=== PATIENT | male | born 1960 | race Caucasian/White ===

== ENCOUNTER 2021-08-02 11:37 | Inpatient (IN) ==
[2021-08-02] MEDS ORDERED: Ringers Solution, Lactated 1,000 ML IVC SCH (12:30)
[2021-08-02] MEDS ORDERED: Lidocaine -MPF 2% 5 ML VIAL ONE (12:55)
[2021-08-02] MEDS ORDERED: Ondansetron 4 MG/2 ML VIAL IVP PRN (15:59)
[2021-08-02] MEDS ORDERED: Naloxone 0.4 MG/ML INJ IVP PRN (15:59)
[2021-08-02 16:27] LABS: Basophils % 0.3 %; Eosinophils % 0.2 %; Hematocrit 22.8 % (37.5-50.1); Hemoglobin 7.5 g/dL (12.9-16.9); Immature Granulocytes % 0.7 % (0-4); Lymphocytes # 1.6 K/mcL (0.6-4.6); Lymphocytes % 14.4 %; Mean Corpuscular HGB Conc 32.9 g/dL (31.6-35.5); Mean Corpuscular Volume 100.4 fL (83.0-100.0); Mean Platelet Volume 10.9 fL (9.4-12.4); Monocytes # 0.7 K/mcL (0.0-1.3); Monocytes % 6.3 %; Neutrophils # 8.5 K/mcL (1.6-8.9); Platelet Count 300 K/mcL (140-400); Red Blood Count 2.27 M/mcL (4.19-5.50); Red Cell Distribution Width 13.2 % (11.5-14.5); Segmented Neutrophils % 78.1 %; White Blood Count 10.9 K/mcL (4.3-11.1)
[2021-08-02 16:34] LABS: INR 1.1; Prothrombin Time 12.4 Seconds (9.4-12.1)
[2021-08-02 16:43] LABS: BUN/Creatinine Ratio 19 (6-26); Blood Urea Nitrogen 11 mg/dL (6-20); Carbon Dioxide 28 mEq/L (23-29); Chloride 90 mEq/L (98-107); Glucose 120 mg/dL (70-105); Osmolality,Calculated 265 (280-300); Potassium 3.4 mEq/L (3.5-5.1); Sodium 127 mEq/L (136-145); eGFR For African Americans > 60 (> 60); eGFR For Non-African Americans > 60 (> 60)
[2021-08-02] MEDS ORDERED: Isovue-370 500 ML BOTTLE IVP ONE (16:46)
[2021-08-02] MEDS ORDERED: Ipratropium/Albuterol Neb 3 ML IH PRN (16:51)
[2021-08-02] MEDS: Nicotine 21 MG PATCH.TD24 TD SCH (17:53)
[2021-08-02] MEDS: Pantoprazole 40 MG VIAL IVP SCH (19:42)
[2021-08-02 21:29] LABS: Hematocrit 20.4 % (37.5-50.1); Hemoglobin 6.8 g/dL (12.9-16.9)
[2021-08-02] MEDS: Budesonide/Formoterol 160/4.5 1 PUFF INH IH SCH (22:09)
[2021-08-03 04:43] LABS: Hematocrit 19.2 % (37.5-50.1); Hemoglobin 6.2 g/dL (12.9-16.9)
[2021-08-03 04:52] LABS: % Iron Saturation 17 % (20-55); BUN/Creatinine Ratio 18 (6-26); Blood Urea Nitrogen 9 mg/dL (6-20); Calcium 7.8 mg/dL (8.6-10.3); Carbon Dioxide 23 mEq/L (23-29); Chloride 93 mEq/L (98-107); Glucose 96 mg/dL (70-105); Iron 35 mcg/dL (65-175); Osmolality,Calculated 263 (280-300); Potassium 3.6 mEq/L (3.5-5.1); Sodium 127 mEq/L (136-145); Transferrin 149 mg/dL (203-362); eGFR For African Americans > 60 (> 60); eGFR For Non-African Americans > 60 (> 60)
[2021-08-03 05:03] LABS: Thyroid Stimulating Hormone 6.595 mcIU/mL (0.340-5.600)
[2021-08-03 05:09] LABS: Ferritin 111 ng/mL (20-250)
[2021-08-03 05:13] LABS: Folate 4.1 ng/mL (3.0-16.0)
[2021-08-03] MEDS: Budesonide/Formoterol 160/4.5 1 PUFF INH IH SCH ×2 (08:02→20:00)
[2021-08-03] MEDS ORDERED: 0.9 % Sodium Chloride 250 ML ONE (08:49)
[2021-08-03] MEDS: Pantoprazole 40 MG VIAL IVP SCH ×2 (09:23→21:33)
[2021-08-03] MEDS ORDERED: Lidocaine -MPF 2% 5 ML VIAL ONE ×2 (10:39→11:21)
[2021-08-03] MEDS ORDERED: *HR* Propofol 200 MG/20 ML VIAL IVP ONE ×2 (10:39→10:53)
[2021-08-03] MEDS: 0.9 % Sodium Chloride 1,000 ML IVC SCH (11:58)
[2021-08-03] MEDS ORDERED: Cyanocobalamin (B-12) 1,000 MCG/ML VIAL SQ ONE (14:30)
[2021-08-03 14:51] LABS: Hematocrit 25.6 % (37.5-50.1)
[2021-08-03 14:53] LABS: Hemoglobin 8.4 g/dL (12.9-16.9)
[2021-08-03 15:03] LABS: Carcinoembryonic Antigen 3.9 ng/mL (Less than 5.0)
[2021-08-03] MEDS: Nicotine 21 MG PATCH.TD24 TD SCH (16:36)
[2021-08-03] MEDS ORDERED: Budesonide/Formoterol 160/4.5 1 PUFF INH IH SCH (22:00)
[2021-08-04] MEDS: 0.9 % Sodium Chloride 1,000 ML IVC SCH ×2 (01:04→12:54)
[2021-08-04 05:41] LABS: Hematocrit 22.2 % (37.5-50.1); Hemoglobin 7.5 g/dL (12.9-16.9); Mean Corpuscular HGB Conc 33.8 g/dL (31.6-35.5); Mean Corpuscular Volume 97.8 fL (83.0-100.0); Platelet Count 229 K/mcL (140-400); Red Blood Count 2.27 M/mcL (4.19-5.50); Red Cell Distribution Width 14.1 % (11.5-14.5); White Blood Count 9.5 K/mcL (4.3-11.1)
[2021-08-04 05:58] LABS: Alanine Aminotransferase 7 Units/L (7-52); Albumin 2.4 g/dL (3.5-5.7); Albumin/Globulin Ratio 0.9 (1.1-2.2); Alkaline Phosphatase 55 Units/L (34-104); Aspartate Amino Transferase 17 Units/L (13-39); BUN/Creatinine Ratio 14 (6-26); Bilirubin,Total 0.4 mg/dL (0.3-1.0); Blood Urea Nitrogen 6 mg/dL (6-20); Calcium 7.3 mg/dL (8.6-10.3); Carbon Dioxide 24 mEq/L (23-29); Chloride 97 mEq/L (98-107); Globulin 2.6 g/dL (2.4-3.5); Glucose 97 mg/dL (70-105); Osmolality,Calculated 268 (280-300); Potassium 3.4 mEq/L (3.5-5.1); Sodium 130 mEq/L (136-145); eGFR For African Americans > 60 (> 60); eGFR For Non-African Americans > 60 (> 60)
[2021-08-04] MEDS: Pantoprazole 40 MG VIAL IVP SCH ×2 (09:38→19:34)
[2021-08-04] MEDS: Folic Acid 1 MG TABLET PO SCH (09:38)
[2021-08-04] MEDS: Budesonide/Formoterol 160/4.5 1 PUFF INH IH SCH ×2 (11:28→20:45)
[2021-08-04] MEDS: Nicotine 21 MG PATCH.TD24 TD SCH (17:46)
[2021-08-05 01:25] LABS: Mean Corpuscular HGB Conc 31.8 g/dL (31.6-35.5); Mean Corpuscular Volume 100.5 fL (83.0-100.0); Platelet Count 218 K/mcL (140-400); Red Blood Count 2.19 M/mcL (4.19-5.50); Red Cell Distribution Width 14.2 % (11.5-14.5); White Blood Count 9.1 K/mcL (4.3-11.1)
[2021-08-05] MEDS: 0.9 % Sodium Chloride 1,000 ML IVC SCH ×2 (01:35→14:22)
[2021-08-05 01:43] LABS: Alanine Aminotransferase 7 Units/L (7-52); Albumin 2.4 g/dL (3.5-5.7); Alkaline Phosphatase 54 Units/L (34-104); Aspartate Amino Transferase 17 Units/L (13-39); BUN/Creatinine Ratio 13 (6-26); Bilirubin,Total 0.3 mg/dL (0.3-1.0); Blood Urea Nitrogen 5 mg/dL (6-20); Calcium 7.3 mg/dL (8.6-10.3); Carbon Dioxide 22 mEq/L (23-29); Chloride 99 mEq/L (98-107); Globulin 2.5 g/dL (2.4-3.5); Glucose 95 mg/dL (70-105); Osmolality,Calculated 271 (280-300); Potassium 3.4 mEq/L (3.5-5.1); Sodium 132 mEq/L (136-145); Total Protein 4.9 g/dL (6.4-8.9); eGFR For African Americans > 60 (> 60); eGFR For Non-African Americans > 60 (> 60)
[2021-08-05] MEDS: Budesonide/Formoterol 160/4.5 1 PUFF INH IH SCH ×2 (07:59→20:24)
[2021-08-05] MEDS: Pantoprazole 40 MG VIAL IVP SCH ×2 (08:51→20:20)
[2021-08-05] MEDS: Folic Acid 1 MG TABLET PO SCH (08:51)
[2021-08-05 12:09] LABS: Hematocrit 26.6 % (37.5-50.1)
[2021-08-05 12:10] LABS: Hemoglobin 8.7 g/dL (12.9-16.9)
[2021-08-05] MEDS: Nicotine 21 MG PATCH.TD24 TD SCH (13:43)
[2021-08-06] MEDS: 0.9 % Sodium Chloride 1,000 ML IVC SCH (03:17)
[2021-08-06 05:48] LABS: Hematocrit 23.3 % (37.5-50.1); Hemoglobin 7.6 g/dL (12.9-16.9); Mean Corpuscular HGB Conc 32.6 g/dL (31.6-35.5); Mean Corpuscular Hemoglobin 32.6 pg (28.0-33.3); Mean Platelet Volume 11.1 fL (9.4-12.4); Platelet Count 256 K/mcL (140-400); Red Blood Count 2.33 M/mcL (4.19-5.50); Red Cell Distribution Width 14.1 % (11.5-14.5); White Blood Count 10.1 K/mcL (4.3-11.1)
[2021-08-06 06:01] LABS: Alanine Aminotransferase 9 Units/L (7-52); Albumin 2.6 g/dL (3.5-5.7); Alkaline Phosphatase 57 Units/L (34-104); Aspartate Amino Transferase 20 Units/L (13-39); BUN/Creatinine Ratio 13 (6-26); Bilirubin,Total 0.4 mg/dL (0.3-1.0); Blood Urea Nitrogen 5 mg/dL (6-20); Calcium 7.4 mg/dL (8.6-10.3); Carbon Dioxide 24 mEq/L (23-29); Chloride 96 mEq/L (98-107); Globulin 2.7 g/dL (2.4-3.5); Glucose 97 mg/dL (70-105); Osmolality,Calculated 267 (280-300); Potassium 3.4 mEq/L (3.5-5.1); Sodium 130 mEq/L (136-145); Total Protein 5.3 g/dL (6.4-8.9); eGFR For African Americans > 60 (> 60); eGFR For Non-African Americans > 60 (> 60)
[2021-08-06] MEDS: Pantoprazole 40 MG VIAL IVP SCH ×2 (08:49→20:13)
[2021-08-06] MEDS: Folic Acid 1 MG TABLET PO SCH (08:49)
[2021-08-06] MEDS: Budesonide/Formoterol 160/4.5 1 PUFF INH IH SCH ×2 (09:06→20:13)
[2021-08-06] MEDS: Nicotine 21 MG PATCH.TD24 TD SCH (18:22)
[2021-08-07 07:51] LABS: Hemoglobin 7.1 g/dL (12.9-16.9); Mean Corpuscular HGB Conc 32.3 g/dL (31.6-35.5); Mean Corpuscular Hemoglobin 32.4 pg (28.0-33.3); Mean Corpuscular Volume 100.5 fL (83.0-100.0); Mean Platelet Volume 11.2 fL (9.4-12.4); Platelet Count 252 K/mcL (140-400); Red Blood Count 2.19 M/mcL (4.19-5.50); Red Cell Distribution Width 14.1 % (11.5-14.5)
[2021-08-07] MEDS: Budesonide/Formoterol 160/4.5 1 PUFF INH IH SCH (07:57)
[2021-08-07 08:04] LABS: Alanine Aminotransferase 9 Units/L (7-52); Albumin 2.7 g/dL (3.5-5.7); Alkaline Phosphatase 56 Units/L (34-104); Aspartate Amino Transferase 19 Units/L (13-39); BUN/Creatinine Ratio 18 (6-26); Bilirubin,Total 0.3 mg/dL (0.3-1.0); Blood Urea Nitrogen 6 mg/dL (6-20); Calcium 7.5 mg/dL (8.6-10.3); Carbon Dioxide 22 mEq/L (23-29); Chloride 93 mEq/L (98-107); Globulin 2.8 g/dL (2.4-3.5); Glucose 96 mg/dL (70-105); Osmolality,Calculated 265 (280-300); Potassium 3.3 mEq/L (3.5-5.1); Sodium 129 mEq/L (136-145); Total Protein 5.5 g/dL (6.4-8.9); eGFR For African Americans > 60 (> 60); eGFR For Non-African Americans > 60 (> 60)
[2021-08-07 12:56] LABS: Adenovirus Not Detected (Not Detect); Bordetella Pertussis Not Detected (Not Detect); Chlamydophila pneumoniae Not Detected (Not Detect); Coronavirus 229E Not Detected (Not Detect); Coronavirus HKU1 Not Detected (Not Detect); Coronavirus NL63 Not Detected (Not Detect); Coronavirus OC43 Not Detected (Not Detect); Human Metapneumovirus Not Detected (Not Detect); Human Rhinovirus/Enterovirus Not Detected (Not Detect); Influenza A Subtype 2009 H1 Not Detected (Not Detect); Influenza B Not Detected (Not Detect); Mycoplasma pneumoniae Not Detected (Not Detect); Parainfluenza Virus 1 Not Detected (Not Detect); Parainfluenza Virus 2 Not Detected (Not Detect); Parainfluenza Virus 3 Not Detected (Not Detect); Parainfluenza Virus 4 Not Detected (Not Detect); Respiratory Syncytial Virus Not Detected (Not Detect); SARS-CoV-2 Not Detected (Not Detect)
[2021-08-07 13:10] LABS: Hematocrit 22.3 % (37.5-50.1); Hemoglobin 7.5 g/dL (12.9-16.9)
[2021-08-07] MEDS: Folic Acid 1 MG TABLET PO SCH (13:30)
[2021-08-07] MEDS: Pantoprazole 40 MG VIAL IVP SCH (13:31)
[2021-08-07 14:57] VITALS: BP 117/72; PULSE 128; TEMP 98.1; O2SAT 98
== END 2021-08-07 15:16 | DRG 240 ==
LOC: ENDPAV 11:37 → 3BNU 11:37 → SUATTDRO 15:52
PROVIDERS: ADMIT Family Medicine; ATTEND Registered Nurse
PROC: ENDOEBX (2021-08-02 12:40)

== ENCOUNTER 2021-08-10 11:26 | Inpatient (IN) ==
[2021-08-10] MEDS: Pantoprazole 40 MG in 0.9 % Sodium Chloride Mini Bag 100 ML IVC SCH ×3 (11:30→20:44)
[2021-08-10] MEDS ORDERED: Pantoprazole 80 MG in 0.9 % Sodium Chloride 50 ML IVPB ONE (11:37)
[2021-08-10] MEDS ORDERED: 0.9 % Sodium Chloride 1,000 ML IVC ONE (11:37)
[2021-08-10] MEDS ORDERED: Isovue-370 500 ML BOTTLE IVP ONE ×2 (11:41→14:37)
[2021-08-10 12:00] LABS: Basophils % 0.2 %; Eosinophils % 0.1 %; Hematocrit 21.2 % (37.5-50.1); Hemoglobin 6.6 g/dL (12.9-16.9); Immature Granulocytes % 0.5 % (0-4); Lymphocytes % 13.6 %; Mean Corpuscular HGB Conc 31.1 g/dL (31.6-35.5); Mean Corpuscular Volume 102.9 fL (83.0-100.0); Monocytes # 0.8 K/mcL (0.0-1.3); Monocytes % 5.6 %; Neutrophils # 11.9 K/mcL (1.6-8.9); Nucleated Red Blood Cells 0.1 /100 WBC (0); Platelet Count 345 K/mcL (140-400); Red Blood Count 2.06 M/mcL (4.19-5.50); Red Cell Distribution Width 14.9 % (11.5-14.5)
[2021-08-10 12:14] LABS: INR 1.1; Prothrombin Time 12.4 Seconds (9.4-12.1)
[2021-08-10 12:17] LABS: Activated Partial Thrombo Time 23.3 Seconds (26.0-36.0)
[2021-08-10 12:19] LABS: Alanine Aminotransferase 10 Units/L (7-52); Albumin 3.2 g/dL (3.5-5.7); Alkaline Phosphatase 56 Units/L (34-104); Aspartate Amino Transferase 22 Units/L (13-39); BUN/Creatinine Ratio 32 (6-26); Bilirubin,Total 0.4 mg/dL (0.3-1.0); Blood Urea Nitrogen 14 mg/dL (6-20); Calcium 8.3 mg/dL (8.6-10.3); Carbon Dioxide 29 mEq/L (23-29); Chloride 93 mEq/L (98-107); Globulin 3.3 g/dL (2.4-3.5); Glucose 144 mg/dL (70-105); Lipase 54 Units/L (11-82); Magnesium 1.8 mg/dL (1.6-2.6); Osmolality,Calculated 281 (280-300); Potassium 3.3 mEq/L (3.5-5.1); Sodium 134 mEq/L (136-145); Total Protein 6.5 g/dL (6.4-8.9); Troponin I < 0.03 ng/mL (< 0.04); eGFR For African Americans > 60 (> 60); eGFR For Non-African Americans > 60 (> 60)
[2021-08-10] MEDS ORDERED: Ondansetron 4 MG/2 ML VIAL IVP PRN (13:38)
[2021-08-10] MEDS ORDERED: Acetaminophen 325 MG TABLET PO PRN (13:38)
[2021-08-10] MEDS ORDERED: Naloxone 0.4 MG/ML INJ IVP PRN (13:38)
[2021-08-10] MEDS: Ringers Solution, Lactated 1,000 ML IVC SCH ×2 (14:50→22:50)
[2021-08-10] MEDS ORDERED: Furosemide 40 MG/4 ML VIAL IVP ONE (15:04)
[2021-08-10 15:42] LABS: Influenza A PCR Negative (Negative); Influenza B PCR Negative (Negative); Resp. Syncytial Virus PCR Negative (Negative)
[2021-08-10 15:43] LABS: SARS-CoV-2 by PCR (In House) Negative (Negative)
[2021-08-10] MEDS ORDERED: *HR* Metoprolol 5 MG/5 ML VIAL IVP STA (16:18)
[2021-08-10] MEDS ORDERED: Cyanocobalamin (B-12) 1,000 MCG/ML VIAL SQ ONE (17:00)
[2021-08-10] MEDS: Nicotine 21 MG PATCH.TD24 TD SCH (17:32)
[2021-08-10] MEDS: *HR* Metoprolol 5 MG/5 ML VIAL IVP PRN (20:43)
[2021-08-10 21:13] LABS: Hematocrit 21.3 % (37.5-50.1); Hemoglobin 6.9 g/dL (12.9-16.9)
[2021-08-10] MEDS ORDERED: Ipratropium/Albuterol Neb 3 ML IH PRN (21:17)
[2021-08-10 21:32] LABS: % Iron Saturation 323 % (20-55); Iron 601 mcg/dL (65-175); Transferrin 133 mg/dL (203-362)
[2021-08-10 21:57] LABS: Folate 5.6 ng/mL (3.0-16.0)
[2021-08-10 21:59] LABS: Vitamin B12 > 1500 pg/mL (250-1100)
[2021-08-10] MEDS ORDERED: Levalbuterol Neb 0.63 MG/3 ML IH SCH (22:00)
[2021-08-10] MEDS ORDERED: 0.9 % Sodium Chloride 250 ML ONE (22:41)
[2021-08-11 00:52] LABS: Basophils % 0.2 %; Hematocrit 24.4 % (37.5-50.1); Hemoglobin 7.8 g/dL (12.9-16.9); Immature Granulocytes % 0.7 % (0-4); Lymphocytes # 0.8 K/mcL (0.6-4.6); Lymphocytes % 6.5 %; Mean Corpuscular Hemoglobin 31.2 pg (28.0-33.3); Mean Corpuscular Volume 97.6 fL (83.0-100.0); Mean Platelet Volume 10.9 fL (9.4-12.4); Monocytes # 0.9 K/mcL (0.0-1.3); Monocytes % 6.6 %; Neutrophils # 11.1 K/mcL (1.6-8.9); Platelet Count 230 K/mcL (140-400); Red Cell Distribution Width 17.2 % (11.5-14.5); White Blood Count 12.9 K/mcL (4.3-11.1)
[2021-08-11 01:10] LABS: BUN/Creatinine Ratio 41 (6-26); Blood Urea Nitrogen 15 mg/dL (6-20); Calcium 7.4 mg/dL (8.6-10.3); Carbon Dioxide 28 mEq/L (23-29); Chloride 99 mEq/L (98-107); Glucose 130 mg/dL (70-105); Magnesium 1.7 mg/dL (1.6-2.6); Osmolality,Calculated 287 (280-300); Phosphorous 3.4 mg/dL (2.7-4.5); Potassium 3.5 mEq/L (3.5-5.1); Sodium 137 mEq/L (136-145); eGFR For African Americans > 60 (> 60); eGFR For Non-African Americans > 60 (> 60)
[2021-08-11] MEDS: Pantoprazole 40 MG in 0.9 % Sodium Chloride Mini Bag 100 ML IVC SCH ×4 (02:44→20:15)
[2021-08-11] MEDS: Ipratropium Neb 0.5 MG NEBULIZER IH PRN ×2 (03:55→18:32)
[2021-08-11 04:32] LABS: Basophils % 0.2 %; Hematocrit 28.1 % (37.5-50.1); Immature Granulocytes % 0.8 % (0-4); Lymphocytes # 1.2 K/mcL (0.6-4.6); Mean Corpuscular Hemoglobin 30.8 pg (28.0-33.3); Mean Corpuscular Volume 96.2 fL (83.0-100.0); Mean Platelet Volume 10.9 fL (9.4-12.4); Monocytes % 6.9 %; Neutrophils # 12.6 K/mcL (1.6-8.9); Nucleated Red Blood Cells 0.2 /100 WBC (0); Platelet Count 230 K/mcL (140-400); Red Blood Count 2.92 M/mcL (4.19-5.50); Segmented Neutrophils % 84.1 %
[2021-08-11] MEDS: Folic Acid 1 MG TABLET PO SCH (07:29)
[2021-08-11] MEDS ORDERED: Nicotine 21 MG PATCH.TD24 TD SCH (09:00)
[2021-08-11] MEDS: Nicotine 21 MG PATCH.TD24 TD SCH (09:33)
[2021-08-11] MEDS: *HR* Metoprolol 5 MG/5 ML VIAL IVP PRN ×2 (09:33→18:21)
[2021-08-11] MEDS ORDERED: Furosemide 40 MG/4 ML VIAL IVP ONE (09:48)
[2021-08-11] MEDS: Budesonide/Formoterol 160/4.5 1 PUFF INH IH SCH ×2 (10:36→20:07)
[2021-08-11] MEDS: Levalbuterol Neb 0.63 MG/3 ML IH SCH ×3 (10:36→20:07)
[2021-08-11] MEDS ORDERED: *HR* LORazepam 2 MG/ML VIAL IVP ONE (19:52)
[2021-08-12] MEDS: Pantoprazole 40 MG in 0.9 % Sodium Chloride Mini Bag 100 ML IVC SCH ×5 (01:20→23:06)
[2021-08-12 02:36] LABS: Basophils % 0.1 %; Hematocrit 26.4 % (37.5-50.1); Hemoglobin 8.5 g/dL (12.9-16.9); Immature Granulocytes % 0.6 % (0-4); Lymphocytes # 0.8 K/mcL (0.6-4.6); Lymphocytes % 6.1 %; Mean Corpuscular HGB Conc 32.2 g/dL (31.6-35.5); Mean Corpuscular Volume 96.4 fL (83.0-100.0); Mean Platelet Volume 11.1 fL (9.4-12.4); Monocytes # 0.9 K/mcL (0.0-1.3); Monocytes % 6.4 %; Neutrophils # 11.6 K/mcL (1.6-8.9); Nucleated Red Blood Cells 0.2 /100 WBC (0); Platelet Count 222 K/mcL (140-400); Red Blood Count 2.74 M/mcL (4.19-5.50); Red Cell Distribution Width 17.3 % (11.5-14.5); Segmented Neutrophils % 86.8 %; White Blood Count 13.4 K/mcL (4.3-11.1)
[2021-08-12 03:00] LABS: BUN/Creatinine Ratio 46 (6-26); Blood Urea Nitrogen 19 mg/dL (6-20); Calcium 7.6 mg/dL (8.6-10.3); Carbon Dioxide 31 mEq/L (23-29); Chloride 100 mEq/L (98-107); Glucose 138 mg/dL (70-105); Magnesium 1.7 mg/dL (1.6-2.6); Osmolality,Calculated 288 (280-300); Phosphorous 2.3 mg/dL (2.7-4.5); Potassium 3.4 mEq/L (3.5-5.1); Sodium 137 mEq/L (136-145); eGFR For African Americans > 60 (> 60); eGFR For Non-African Americans > 60 (> 60)
[2021-08-12] MEDS: Levalbuterol Neb 0.63 MG/3 ML IH SCH ×4 (04:11→21:32)
[2021-08-12] MEDS ORDERED: Morphine Sulfate 2 MG/ML SYRINGE IVP ONE (05:11)
[2021-08-12] MEDS ORDERED: Furosemide 40 MG/4 ML VIAL IVP ONE (07:12)
[2021-08-12] MEDS ORDERED: Potassium Phosphate 44 MEQ in 0.9 % Sodium Chloride 250 ML IVPB ONE (07:16)
[2021-08-12] MEDS: Nicotine 21 MG PATCH.TD24 TD SCH (07:36)
[2021-08-12] MEDS: Folic Acid 1 MG TABLET PO SCH (07:36)
[2021-08-12] MEDS: Cyanocobalamin (B-12) 1,000 MCG/ML VIAL SQ SCH (07:37)
[2021-08-12] MEDS ORDERED: Perflutren Lipid Microsphere 1.3 ML in 0.9 % Sodium Chloride 8.7 ML IVP PRN (10:05)
[2021-08-12] MEDS: Budesonide/Formoterol 160/4.5 1 PUFF INH IH SCH ×2 (10:10→21:32)
[2021-08-12] MEDS ORDERED: Furosemide 40 MG/4 ML VIAL ONE (13:26)
[2021-08-12] MEDS ORDERED: cefTRIAXone 1,000 MG in Water for inj. (sterile) 10 ML IVP SCH (14:00)
[2021-08-12] MEDS: Azithromycin 500 MG in 0.9 % Sodium Chloride 250 ML IVPB SCH (16:40)
[2021-08-12 16:51] LABS: ABG Base Excess 8 mEq/L (-2 to 3); ABG HCO3 35 mEq/L (21-27); ABG Oxygen Saturation 95 % (95-98); ABG PCO2 61 mmHg (35-45); ABG PH 7.36 pH Units (7.32-7.45); ABG PO2 81 mmHg (85-104); ABG TCO2 36 mEq/L (20-26)
[2021-08-12] MEDS ORDERED: Ringers Solution, Lactated 1,000 ML ONE (18:15)
[2021-08-12] MEDS ORDERED: Ringers Solution, Lactated 500 ML IVC ONE (18:15)
[2021-08-12] MEDS ORDERED: Levalbuterol Neb 1.25 MG/3 ML ONE (21:03)
[2021-08-12] MEDS ORDERED: Dexmedetomidine HCl 400 MCG/100 ML MLS IVC SCH (21:15)
[2021-08-12] MEDS: Albumin 25% 12.5gm/50mL 12.5 GM/50 ML IV.SOLN IVPB SCH (23:07)
[2021-08-13] MEDS ORDERED: Levalbuterol Neb 1.25 MG/3 ML ONE (02:53)
[2021-08-13] MEDS: Levalbuterol Neb 0.63 MG/3 ML IH SCH ×4 (03:41→19:53)
[2021-08-13] MEDS: Pantoprazole 40 MG in 0.9 % Sodium Chloride Mini Bag 100 ML IVC SCH ×6 (04:41→21:19)
[2021-08-13 05:48] LABS: Basophils % 0.1 %; Hematocrit 26.5 % (37.5-50.1); Hemoglobin 8.1 g/dL (12.9-16.9); Immature Granulocytes % 0.6 % (0-4); Lymphocytes # 1.1 K/mcL (0.6-4.6); Lymphocytes % 9.1 %; Mean Corpuscular HGB Conc 30.6 g/dL (31.6-35.5); Mean Corpuscular Hemoglobin 30.8 pg (28.0-33.3); Mean Corpuscular Volume 100.8 fL (83.0-100.0); Mean Platelet Volume 11.1 fL (9.4-12.4); Monocytes % 7.8 %; Neutrophils # 10.3 K/mcL (1.6-8.9); Nucleated Red Blood Cells 0.7 /100 WBC (0); Platelet Count 189 K/mcL (140-400); Red Blood Count 2.63 M/mcL (4.19-5.50); Red Cell Distribution Width 17.1 % (11.5-14.5); Segmented Neutrophils % 82.4 %; White Blood Count 12.5 K/mcL (4.3-11.1)
[2021-08-13 06:10] LABS: BUN/Creatinine Ratio 45 (6-26); Blood Urea Nitrogen 20 mg/dL (6-20); Calcium 7.6 mg/dL (8.6-10.3); Carbon Dioxide 35 mEq/L (23-29); Chloride 100 mEq/L (98-107); Glucose 135 mg/dL (70-105); Magnesium 2.1 mg/dL (1.6-2.6); Osmolality,Calculated 303 (280-300); Phosphorous 2.2 mg/dL (2.7-4.5); Sodium 144 mEq/L (136-145); eGFR For African Americans > 60 (> 60); eGFR For Non-African Americans > 60 (> 60)
[2021-08-13] MEDS: Albumin 25% 12.5gm/50mL 12.5 GM/50 ML IV.SOLN IVPB SCH ×3 (08:50→23:56)
[2021-08-13] MEDS: Nicotine 21 MG PATCH.TD24 TD SCH (08:52)
[2021-08-13] MEDS: Cyanocobalamin (B-12) 1,000 MCG/ML VIAL SQ SCH (08:54)
[2021-08-13] MEDS ORDERED: Furosemide 20 MG/2 ML VIAL IVP SCH (09:00)
[2021-08-13] MEDS: Folic Acid 1 MG TABLET PO SCH (09:03)
[2021-08-13] MEDS: Budesonide/Formoterol 160/4.5 1 PUFF INH IH SCH ×2 (10:44→19:53)
[2021-08-13] MEDS ORDERED: Albumin 25% 25gram/100mL 25 GM/100 ML IV.SOLN IVPB ONE (11:48)
[2021-08-13 12:36] LABS: RBC,Pleural Fluid < 2000 RBC/mcL
[2021-08-13 12:38] LABS: Total Protein,Pleural Fluid 2.2 g/dL
[2021-08-13] MEDS: Azithromycin 500 MG in 0.9 % Sodium Chloride 250 ML IVPB SCH (13:03)
[2021-08-13 13:23] LABS: Basophils,Pleural Fluid 0 %; Eosinophils,Pleural Fluid 0 %
[2021-08-13] MEDS ORDERED: 0.9 % Sodium Chloride 1,000 ML IVC SCH (13:45)
[2021-08-13 14:02] LABS: Appearance of Pleural Fl Clear (Clear)
[2021-08-13] MEDS ORDERED: D10% in Water 500 ML IVC PRN (16:08)
[2021-08-13] MEDS ORDERED: Clinimix E 5%-15% SOLUTION 2,000 ML with MVI, adult with vitamin K 10 ML IVC SCH ×2 (17:00)
[2021-08-13] MEDS ORDERED: Piperacillin/Tazobactam 3.375 GM in 0.9 % Sodium Chloride Mini Bag 100 ML IVPB SCH (17:00)
[2021-08-13] MEDS ORDERED: Ondansetron 4 MG/2 ML VIAL IVP PRN (17:48)
[2021-08-13] MEDS ORDERED: Acetaminophen 325 MG TABLET PO PRN (17:48)
[2021-08-13] MEDS ORDERED: Naloxone 0.4 MG/ML INJ IVP PRN (17:48)
[2021-08-13] MEDS: 0.9 % Sodium Chloride 1,000 ML IVC SCH (18:40)
[2021-08-13 18:48] LABS: Hematocrit 22.7 % (37.5-50.1); Hemoglobin 7.1 g/dL (12.9-16.9)
[2021-08-13] MEDS ORDERED: Levalbuterol Neb 0.63 MG/3 ML ONE (19:39)
[2021-08-14] MEDS: Piperacillin/Tazobactam 3.375 GM in 0.9 % Sodium Chloride Mini Bag 100 ML IVPB SCH ×3 (01:01→17:38)
[2021-08-14] MEDS: 0.9 % Sodium Chloride 1,000 ML IVC SCH (01:17)
[2021-08-14 01:49] LABS: Hematocrit 23.2 % (37.5-50.1); Hemoglobin 7.2 g/dL (12.9-16.9)
[2021-08-14] MEDS: Pantoprazole 40 MG in 0.9 % Sodium Chloride Mini Bag 100 ML IVC SCH ×2 (02:20→07:35)
[2021-08-14 03:25] LABS: VBG Ionized Calcium 1.07 mmol/L (1.15-1.35)
[2021-08-14 03:32] LABS: Hematocrit 23.6 % (37.5-50.1); Hemoglobin 7.1 g/dL (12.9-16.9)
[2021-08-14 03:33] LABS: Basophils % 0.1 %; Hematocrit 23.1 % (37.5-50.1); Hemoglobin 7.1 g/dL (12.9-16.9); Immature Granulocytes % 0.8 % (0-4); Lymphocytes # 1.2 K/mcL (0.6-4.6); Lymphocytes % 9.6 %; Mean Corpuscular HGB Conc 30.7 g/dL (31.6-35.5); Mean Corpuscular Hemoglobin 31.4 pg (28.0-33.3); Mean Corpuscular Volume 102.2 fL (83.0-100.0); Mean Platelet Volume 11.4 fL (9.4-12.4); Monocytes # 0.7 K/mcL (0.0-1.3); Neutrophils # 10.2 K/mcL (1.6-8.9); Nucleated Red Blood Cells 1.2 /100 WBC (0); Platelet Count 163 K/mcL (140-400); Red Blood Count 2.26 M/mcL (4.19-5.50); Red Cell Distribution Width 16.8 % (11.5-14.5); Segmented Neutrophils % 83.5 %; White Blood Count 12.2 K/mcL (4.3-11.1)
[2021-08-14] MEDS: Levalbuterol Neb 0.63 MG/3 ML IH SCH ×4 (03:45→20:08)
[2021-08-14 03:48] LABS: Alanine Aminotransferase 12 Units/L (7-52); Albumin 3.4 g/dL (3.5-5.7); Albumin/Globulin Ratio 1.6 (1.1-2.2); Alkaline Phosphatase 155 Units/L (34-104); Aspartate Amino Transferase 34 Units/L (13-39); BUN/Creatinine Ratio 48 (6-26); BUN/Creatinine Ratio 54 (6-26); Bilirubin,Total 0.5 mg/dL (0.3-1.0); Blood Urea Nitrogen 20 mg/dL (6-20); Calcium 7.6 mg/dL (8.6-10.3); Carbon Dioxide 34 mEq/L (23-29); Carbon Dioxide 38 mEq/L (23-29); Chloride 105 mEq/L (98-107); Chloride 106 mEq/L (98-107); Globulin 2.1 g/dL (2.4-3.5); Glucose 172 mg/dL (70-105); Glucose 175 mg/dL (70-105); Magnesium 2.2 mg/dL (1.6-2.6); Osmolality,Calculated 309 (280-300); Osmolality,Calculated 311 (280-300); Potassium 3.5 mEq/L (3.5-5.1); Potassium 3.6 mEq/L (3.5-5.1); Sodium 146 mEq/L (136-145); Sodium 147 mEq/L (136-145); Total Protein 5.5 g/dL (6.4-8.9); Triglycerides 97 mg/dL (< 150); eGFR For African Americans > 60 (> 60); eGFR For Non-African Americans > 60 (> 60)
[2021-08-14] MEDS: Budesonide/Formoterol 160/4.5 1 PUFF INH IH SCH ×2 (07:32→20:09)
[2021-08-14] MEDS: Albumin 25% 12.5gm/50mL 12.5 GM/50 ML IV.SOLN IVPB SCH (07:35)
[2021-08-14] MEDS ORDERED: Potassium Phosphate 44 MEQ in 0.9 % Sodium Chloride 250 ML IVPB ONE (07:52)
[2021-08-14] MEDS ORDERED: D5% in 0.45% NACL 1,000 ML IVC SCH ×4 (08:00→16:47)
[2021-08-14] MEDS: Calcium Gluconate 1gm/50mL 1 GM/50 ML BAG IVPB SCH ×2 (08:24→09:05)
[2021-08-14] MEDS ORDERED: Folic Acid 1 MG TABLET PO SCH (09:00)
[2021-08-14] MEDS ORDERED: Nicotine 21 MG PATCH.TD24 TD SCH (09:00)
[2021-08-14] MEDS ORDERED: Cyanocobalamin (B-12) 1,000 MCG/ML VIAL SQ SCH (09:00)
[2021-08-14] MEDS ORDERED: *HR* Metoprolol 5 MG/5 ML VIAL IVP PRN ×3 (10:05→16:47)
[2021-08-14] MEDS ORDERED: Tiotropium 10 INH DOSE IH SCH (10:15)
[2021-08-14] MEDS ORDERED: Fat Emulsions 20% 250 ML IVPB SCH ×2 (11:45→17:00)
[2021-08-14] MEDS ORDERED: Azithromycin 250 MG TABLET PO SCH (12:00)
[2021-08-14] MEDS ORDERED: Azithromycin 500 MG in 0.9 % Sodium Chloride 250 ML IVPB SCH (14:00)
[2021-08-14 14:50] LABS: Hematocrit 24.9 % (37.5-50.1); Hemoglobin 7.1 g/dL (12.9-16.9)
[2021-08-14] MEDS ORDERED: Ondansetron 4 MG/2 ML VIAL IVP PRN (16:47)
[2021-08-14] MEDS ORDERED: Naloxone 0.4 MG/ML INJ IVP PRN (16:47)
[2021-08-14] MEDS ORDERED: Clinimix E 5%-15% SOLUTION 2,000 ML with MVI, adult with vitamin K 10 ML IVC SCH ×3 (16:47→17:00)
[2021-08-14] MEDS ORDERED: Acetaminophen 325 MG TABLET PO PRN (16:47)
[2021-08-14] MEDS: Pantoprazole 40 MG VIAL IVP SCH (17:36)
[2021-08-14] MEDS ORDERED: Pantoprazole 40 MG VIAL IVP SCH (18:00)
[2021-08-14 21:07] LABS: Hemoglobin 8.1 g/dL (12.9-16.9)
[2021-08-14 21:09] LABS: Hematocrit 26.4 % (37.5-50.1)
[2021-08-15 00:37] LABS: ABG Base Excess 12 mEq/L (-2 to 3); ABG HCO3 39 mEq/L (21-27); ABG Oxygen Saturation 96 % (95-98); ABG PCO2 73 mmHg (35-45); ABG PH 7.34 pH Units (7.32-7.45); ABG PO2 94 mmHg (85-104); ABG TCO2 42 mEq/L (20-26); Blood Gas Modality BiLevel; Blood Gas VT 480 cc
[2021-08-15] MEDS: Piperacillin/Tazobactam 3.375 GM in 0.9 % Sodium Chloride Mini Bag 100 ML IVPB SCH ×3 (01:49→16:56)
[2021-08-15] MEDS: Levalbuterol Neb 0.63 MG/3 ML IH SCH ×4 (03:27→20:15)
[2021-08-15] MEDS: Pantoprazole 40 MG VIAL IVP SCH ×2 (05:13→17:20)
[2021-08-15 06:16] LABS: Hematocrit 26.5 % (37.5-50.1); Hemoglobin 7.9 g/dL (12.9-16.9); Mean Corpuscular HGB Conc 29.8 g/dL (31.6-35.5); Mean Corpuscular Hemoglobin 31.6 pg (28.0-33.3); Platelet Count 153 K/mcL (140-400); Red Cell Distribution Width 16.6 % (11.5-14.5); White Blood Count 16.2 K/mcL (4.3-11.1)
[2021-08-15 06:33] LABS: BUN/Creatinine Ratio 43 (6-26); Blood Urea Nitrogen 18 mg/dL (6-20); Carbon Dioxide 40 mEq/L (23-29); Chloride 106 mEq/L (98-107); Glucose 155 mg/dL (70-105); Magnesium 2.1 mg/dL (1.6-2.6); Osmolality,Calculated 309 (280-300); Phosphorous 3.2 mg/dL (2.7-4.5); Potassium 4.1 mEq/L (3.5-5.1); Sodium 147 mEq/L (136-145); eGFR For African Americans > 60 (> 60); eGFR For Non-African Americans > 60 (> 60)
[2021-08-15] MEDS ORDERED: Cyanocobalamin (B-12) 1,000 MCG/ML VIAL SQ SCH (09:00)
[2021-08-15] MEDS ORDERED: Folic Acid 1 MG TABLET PO SCH (09:00)
[2021-08-15] MEDS ORDERED: Furosemide 20 MG/2 ML VIAL IVP STA (09:47)
[2021-08-15] MEDS: Nicotine 21 MG PATCH.TD24 TD SCH (09:54)
[2021-08-15 10:06] LABS: ABG Base Excess 12 mEq/L (-2 to 3); ABG HCO3 40 mEq/L (21-27); ABG Oxygen Saturation 85 % (95-98); ABG PCO2 76 mmHg (35-45); ABG PH 7.33 pH Units (7.32-7.45); ABG PO2 57 mmHg (85-104); ABG TCO2 42 mEq/L (20-26); Blood Gas Modality PC; Blood Gas VT 480 cc
[2021-08-15] MEDS: Budesonide/Formoterol 160/4.5 1 PUFF INH IH SCH ×2 (10:07→20:16)
[2021-08-15] MEDS: Tiotropium 10 INH DOSE IH SCH (10:08)
[2021-08-15] MEDS ORDERED: D10% in Water 500 ML IVC PRN (10:54)
[2021-08-15] MEDS ORDERED: Furosemide 40 MG/4 ML VIAL IVP ONE (11:54)
[2021-08-15 11:55] LABS: ABG Base Excess 11 mEq/L (-2 to 3); ABG HCO3 35 mEq/L (21-27); ABG Oxygen Saturation 93 % (95-98); ABG PCO2 40 mmHg (35-45); ABG PH 7.55 pH Units (7.32-7.45); ABG PO2 59 mmHg (85-104); ABG TCO2 36 mEq/L (20-26); Blood Gas VT 480 cc
[2021-08-15] MEDS ORDERED: Azithromycin 250 MG TABLET PO SCH (12:00)
[2021-08-15] MEDS: MethylPREDNISolone 40 MG/ML VIAL IVP SCH ×2 (12:17→20:40)
[2021-08-15] MEDS ORDERED: Clinimix E 5%-15% SOLUTION 2,000 ML with MVI, adult with vitamin K 10 ML IVC SCH (17:00)
[2021-08-15] MEDS ORDERED: Artificial Tears SOLN 15 ML BOTTLE BOTH EYES PRN (18:40)
[2021-08-15] MEDS: Norepinephrine 4 MG/254 ML IV.SOLN IVC SCH (19:00)
[2021-08-15] MEDS: FentaNYL (PF) 1,000 MCG/100 ML IV.SOLN IVC SCH (19:00)
[2021-08-15] MEDS: Dexmedetomidine HCl 400 MCG/100 ML MLS IVC SCH (19:00)
[2021-08-15 20:17] LABS: ABG Base Excess 10 mEq/L (-2 to 3); ABG HCO3 36 mEq/L (21-27); ABG Oxygen Saturation 96 % (95-98); ABG PCO2 57 mmHg (35-45); ABG PH 7.41 pH Units (7.32-7.45); ABG PO2 81 mmHg (85-104); ABG TCO2 38 mEq/L (20-26); Blood Gas Modality AF; Blood Gas VT 500 cc
[2021-08-15] MEDS: Artificial Tears SOLN 15 ML BOTTLE BOTH EYES SCH (20:40)
[2021-08-15] MEDS: Chlorhexidine Rinse 15 ML MOUTHWASH MM SCH (20:40)
[2021-08-16] MEDS: Artificial Tears SOLN 15 ML BOTTLE BOTH EYES SCH ×7 (01:44→23:26)
[2021-08-16] MEDS: Piperacillin/Tazobactam 3.375 GM in 0.9 % Sodium Chloride Mini Bag 100 ML IVPB SCH ×3 (01:50→17:29)
[2021-08-16] MEDS: Norepinephrine 4 MG/254 ML IV.SOLN IVC SCH (02:39)
[2021-08-16 04:09] LABS: Hematocrit 26.2 % (37.5-50.1); Hemoglobin 7.7 g/dL (12.9-16.9); Mean Corpuscular HGB Conc 29.4 g/dL (31.6-35.5); Mean Corpuscular Hemoglobin 30.9 pg (28.0-33.3); Mean Corpuscular Volume 105.2 fL (83.0-100.0); Mean Platelet Volume 12.4 fL (9.4-12.4); Platelet Count 121 K/mcL (140-400); Red Blood Count 2.49 M/mcL (4.19-5.50); Red Cell Distribution Width 16.2 % (11.5-14.5); White Blood Count 13.6 K/mcL (4.3-11.1)
[2021-08-16 04:30] LABS: Magnesium 2.2 mg/dL (1.6-2.6); Phosphorous 2.9 mg/dL (2.7-4.5)
[2021-08-16] MEDS: Levalbuterol Neb 0.63 MG/3 ML IH SCH ×4 (04:30→20:06)
[2021-08-16 04:31] LABS: BUN/Creatinine Ratio 55 (6-26); Blood Urea Nitrogen 23 mg/dL (6-20); Calcium 7.9 mg/dL (8.6-10.3); Carbon Dioxide 38 mEq/L (23-29); Chloride 106 mEq/L (98-107); Glucose 197 mg/dL (70-105); Osmolality,Calculated 313 (280-300); Potassium 3.9 mEq/L (3.5-5.1); Sodium 147 mEq/L (136-145); eGFR For African Americans > 60 (> 60); eGFR For Non-African Americans > 60 (> 60)
[2021-08-16 04:59] LABS: ABG Base Excess 12 mEq/L (-2 to 3); ABG HCO3 39 mEq/L (21-27); ABG Oxygen Saturation 91 % (95-98); ABG PCO2 63 mmHg (35-45); ABG PO2 65 mmHg (85-104); ABG TCO2 41 mEq/L (20-26); Blood Gas Modality ASSIST CONTROL; Blood Gas VT 500 cc
[2021-08-16] MEDS: FentaNYL (PF) 1,000 MCG/100 ML IV.SOLN IVC SCH ×2 (05:00→19:33)
[2021-08-16] MEDS: Pantoprazole 40 MG VIAL IVP SCH ×2 (05:18→17:31)
[2021-08-16] MEDS: Budesonide/Formoterol 160/4.5 1 PUFF INH IH SCH ×2 (07:40→20:06)
[2021-08-16] MEDS: Tiotropium 10 INH DOSE IH SCH (07:40)
[2021-08-16] MEDS: MethylPREDNISolone 40 MG/ML VIAL IVP SCH ×2 (08:12→20:19)
[2021-08-16] MEDS: Nicotine 21 MG PATCH.TD24 TD SCH (08:13)
[2021-08-16] MEDS: Dexmedetomidine HCl 400 MCG/100 ML MLS IVC SCH ×2 (08:15→19:32)
[2021-08-16] MEDS: Chlorhexidine Rinse 15 ML MOUTHWASH MM SCH ×2 (09:00→20:15)
[2021-08-16] MEDS ORDERED: Clinimix E 5%-15% SOLUTION 2,000 ML with MVI, adult with vitamin K 10 ML IVC SCH (17:00)
[2021-08-17] MEDS: Piperacillin/Tazobactam 3.375 GM in 0.9 % Sodium Chloride Mini Bag 100 ML IVPB SCH ×2 (01:15→08:04)
[2021-08-17] MEDS: Artificial Tears SOLN 15 ML BOTTLE BOTH EYES SCH ×2 (03:29→07:56)
[2021-08-17 04:42] LABS: BUN/Creatinine Ratio 63 (6-26); Blood Urea Nitrogen 29 mg/dL (6-20); Calcium 8.2 mg/dL (8.6-10.3); Carbon Dioxide 39 mEq/L (23-29); Chloride 106 mEq/L (98-107); Glucose 176 mg/dL (70-105); Osmolality,Calculated 314 (280-300); Sodium 147 mEq/L (136-145); eGFR For African Americans > 60 (> 60); eGFR For Non-African Americans > 60 (> 60)
[2021-08-17] MEDS: Pantoprazole 40 MG VIAL IVP SCH (05:52)
[2021-08-17 07:31] LABS: Magnesium 2.2 mg/dL (1.6-2.6); Phosphorous 4.3 mg/dL (2.7-4.5)
[2021-08-17] MEDS: MethylPREDNISolone 40 MG/ML VIAL IVP SCH (07:55)
[2021-08-17] MEDS ORDERED: Ondansetron 4 MG/2 ML VIAL IVP PRN (10:00)
[2021-08-17] MEDS ORDERED: Dexmedetomidine HCl 400 MCG/100 ML MLS IVC SCH (10:00)
[2021-08-17] MEDS ORDERED: Norepinephrine 4 MG/254 ML IV.SOLN IVC SCH (10:00)
[2021-08-17] MEDS ORDERED: D10% in Water 500 ML IVC PRN (10:00)
[2021-08-17] MEDS ORDERED: Naloxone 0.4 MG/ML INJ IVP PRN (10:00)
[2021-08-17] MEDS ORDERED: Acetaminophen 325 MG TABLET PO PRN (10:00)
[2021-08-17] MEDS ORDERED: Clinimix E 5%-15% SOLUTION 2,000 ML with MVI, adult with vitamin K 10 ML IVC SCH (10:00)
[2021-08-17] MEDS ORDERED: FentaNYL (PF) 1,000 MCG/100 ML IV.SOLN IVC SCH (10:30)
[2021-08-17] MEDS ORDERED: *HR* Dextrose 50 % in Water (Syg) 50 ML SYRINGE IVP PRN (11:05)
[2021-08-17] MEDS ORDERED: Dextrose Gel 15 GM/37.5 ML TUBE PO PRN ×2 (11:05)
[2021-08-17] MEDS ORDERED: D5% in Water 1,000 ML IVC PRN (11:05)
[2021-08-17 11:44] VITALS: BP 121/77
[2021-08-17 11:45] VITALS: PULSE 114; TEMP 97.8; O2SAT 91
[2021-08-17] MEDS ORDERED: Insulin LISPRO 300 UNITS/3 ML VIAL SUBQ SCH (12:00)
[2021-08-17] MEDS ORDERED: Artificial Tears SOLN 15 ML BOTTLE BOTH EYES SCH (12:00)
[2021-08-17] MEDS: *HR* FentaNYL (PF) 100 MCG/2 ML VIAL IVP PRN ×4 (12:20→15:37)
[2021-08-17] MEDS ORDERED: *HR* LORazepam 2 MG/ML VIAL IVP PRN (13:56)
[2021-08-17] MEDS ORDERED: Piperacillin/Tazobactam 3.375 GM in 0.9 % Sodium Chloride Mini Bag 100 ML IVPB SCH (17:00)
[2021-08-17] MEDS ORDERED: Pantoprazole 40 MG VIAL IVP SCH (18:00)
[2021-08-17] MEDS ORDERED: MethylPREDNISolone 40 MG/ML VIAL IVP SCH (21:00)
== END 2021-08-17 19:55 | disposition expired | DRG 240 ==
LOC: EMEROOARM 11:26 → 2NNU 11:26 → 3ANU 11:26 → SUATTDRO 15:07 → 2NNU 16:00 → SUATTDRO 08-11 10:10 → ICNU 08-12 18:59 → 2ANU 08-14 15:16 → ICNU 08-15 18:36 → 2NNU 08-17 11:38
PROVIDERS: ADMIT Internal Medicine; ATTEND Internal Medicine